=== PATIENT | male | born 1945 | race Caucasian/White ===

== ENCOUNTER → 2016-11-27 | Outpatient (CLI) | payer OTHER ==
[~2016-11-27] MED LIST: AMLODIPINE BESY10 MG PO; ASPIRIN EC81 M1 PO; BUMETANIDE2 M1 PO; COREG PO; COUMADIN2.5 MG PO; FISH OIL500 MG PO; FLEXERIL10 MG PO; FUROSEMIDE40 MG PO; GLIMEPIRIDE2 MG PO; HYDRALAZINE HCL25 MG PO; ISOSORBIDE DINI30 MG PO; K-TAB ER20 MEQ PO; KCL PO; LOSARTAN POTAS100 MG PO; MEVACOR40 MG PO; PRILOSEC PO; SIMVASTATIN40 MG PO; SOTALOL AF80 MG PO; TYLOX 5-500 MG1 EACH PO; WARFARIN SODIUM4 M1 PO
--- NOTE | ~2016-11-27 | CT2 ---
[facility] A Service of [facility] & [facility] RADIOLOGY TEXT RESULTS PATIENT: MICHEAL LERNER [facility] #: [id number] AGE: [address]: Denys Garber MD SEX: M ORDER DR: [id number] [facility] [address] [place], [place] [address] [id number] O MR#: [id number] Acc #: [id number] NAME: MICHEAL LERNER. : 1945 SEX: M STUDY DATE/TIME: 11/27/2016 10:16 UNIT: [facility] ROOM: STUDY DESCRIPTION: CT Abd and Pelv W Cont Attending Physician: Denys Garber M.D. Referring Physician: Denys Garber M.D. Ordering Physician: Denys Garber M.D. Primary Care Physician: Nir Welch M.D. MEDICAL IMAGING REPORT This report is preliminary unless electronic signature is present INDICATION Abdominal pain. Blood in the stool. Hematochezia. TECHNIQUE CT of the abdomen and pelvis with p.o. and IV contrast (100 mL Isovue-370 IV contrast). Coronal and sagittal reconstructions were obtained. COMPARISON CT abdomen, 12/31/[address] exam was performed with one or more of the following radiation dose reduction techniques: automatic exposure control, adjustment of mA and/or kV according to patient size, and iterative reconstruction. FINDINGS ABDOMEN: Low attenuation throughout the liver suggests background steatosis. There is some caudate hypertrophy and some mild periportal atrophy. Although nonspecific, this may suggest some background cirrhosis, however this is not definitive. The spleen is normal in size. Pancreas is normal. There is a benign left adrenal myelolipoma measuring 3.3 cm. Several cysts are noted in the kidneys. There is a nonobstructing calculus in the mid right kidney measuring 4.0 mm. No hydronephrosis. Small hiatal hernia. No enlarged retroperitoneal or mesenteric lymph nodes. The bowel is not dilated. There is occasional colonic diverticula. No diverticulitis. The abdominal aorta is normal in caliber. PELVIS: No enlarged pelvic or inguinal lymph nodes. Bladder is decompressed. No enlarged pelvic or inguinal lymph nodes. STS. [facility] A Service of [facility] & [facility] RADIOLOGY TEXT RESULTS PATIENT: MICHEAL LERNER LOCATION: [facility] : 43 UNIT #: [id number] AGE: [address]: Denys Garber MD SEX: M ORDER DR: No acute osseous abnormalities. IMPRESSION 1. No acute findings in the abdomen or pelvis. 2. Nonobstructing right renal calculus. 3. Hepatic steatosis. There are some features in the liver that are suggestive of background cirrhosis, however this is not definitive. 4. Benign left adrenal myelolipoma. 5. Diverticulosis. Dictated by... Joe Peterson M.D. THIS IS AN ELECTRONICALLY VERIFIED REPORT Joe Peterson M.D. at 11/27/2016 4:42 PM HARDY/partha TD: 11/27/2016 12:49 JOB #: [id number] MEDICAL IMAGING REPORT COPY
[2016-11-27 10:31] LABS: POC - CREATININE 1.25 mg/dL (0.64-1.27)
== END | disposition home or self-care (01) ==
LOC: CCAT 08:51
PROVIDERS: Surgery
DX: R10.9 Unspecified abdominal pain (principal); K92.1 Melena; N20.0 Calculus of kidney; K76.0 Fatty (change of) liver, not elsewhere classified; D17.79 Benign lipomatous neoplasm of other sites; K57.90 Diverticulosis of intestine, part unspecified, without perforation or abscess without bleeding
CPT/HCPCS: 74177; 82565; Q9967

== ENCOUNTER → 2016-11-30 | Day surgery (SDC) | payer OTHER ==
--- NOTE | ~2016-11-30 | OR ---
Unit #: [id number] #: [id number] Patient: MICHEAL LERNER [id number] [address] [address] [id number] O MR#: [id number] NAME: MICHEAL LERNER. ROOM: Date of Procedure: 11/30/2016 Admission Date: 11/30/2016 Surgeon: Denys Garber M.D. : 1945 Attending Physician: Denys Garber M.D. Primary Care Physician: Nir Welch M.D. OPERATIVE REPORT PREOPERATIVE DIAGNOSES 1. Rectal bleeding. 2. History of colon cancer in sibling. 3. History of duodenal mass. POSTOPERATIVE DIAGNOSES 1. Rectal bleeding. 2. History of colon cancer in sibling. 3. History of duodenal mass. PROCEDURE PERFORMED 1. Esophagogastroduodenoscopy. 2. Biopsy of antrum for Helicobacter pylori testing. 3. Biopsy of small gastric nodule at incisura with placement of hemoclip. 4. Colonoscopy to cecum. 5. Polypectomy at 70 cm with electrocautery snare. 6. Polypectomy at 55 cm with electrocautery snare as well as hemoclip placement and submucosal tattoo. ANESTHESIA Monitored anesthesia care. FINDINGS The patient was found on upper endoscopy to have a large hiatal hernia as well as some mild distal gastritis. There was a small 5 mm gastric nodule present at the incisura. A biopsy was obtained from this. A hemoclip was placed on the site for hemostasis. The duodenum was normal. On colonoscopy, the patient was found to have a few scattered sigmoid diverticula. A 5 mm polyp was found at 70 cm, removed with electrocautery snare with good hemostasis. A larger polyp approximately 1 to 1.5 cm in size was excised with electrocautery snare at 55 cm with good hemostasis, but hemoclip placement was placed on the stalk to ensure good hemostasis as well as submucosal tattooing of the area. SPECIMEN Sent to pathology. COMPLICATIONS None apparent. CONDITION The patient tolerated the procedure well. Unit #: [id number] #: [id number] Patient: MICHEAL LERNER INDICATIONS FOR PROCEDURE The patient is a 69-year-old white male, who has a history of a brother with colon cancer. In addition, he has had some intermittent rectal bleeding. He also has a history of a duodenal mass that was biopsied in the past without evidence of malignancy. DESCRIPTION OF PROCEDURE After obtaining informed consent, the patient was brought to the endoscopy suite and after adequate monitored anesthesia care, had the endoscope placed through the mouth in the upper esophagus under direct vision. It was advanced to the second and third portion of the duodenum without difficulty and with the lumen always in view. The duodenum was normal and the second and third portion as well as the duodenal bulb. There was no evidence of a previously excised duodenal mass. This was performed 2 to 3 years ago. We obtained images as well as the pathology, but there was no evidence of this present today. The pylorus opened normally. There was some mild distal gastritis present and a biopsy was obtained for Helicobacter pylori testing. On retroflexion back to the GE junction, there was a large hiatal hernia. No other abnormalities were found in the proximal third or middle third, however, at the incisura, there was a small 3 to 5 mm nodule present. It was excised and biopsied with the cold biopsy forceps. There was no active bleeding, however. A hemoclip was placed on the site of the biopsy because the patient would be having his anticoagulation restarted tomorrow. At this point in time, the endoscope was pulled back above the GE junction. There was no stenosis, stricture, or neoplasm seen. There was no significant esophagitis. The remaining portion of the esophagus was within normal limits. Laryngeal structures were grossly normal as viewed from above. At this point in time, the colonoscope was placed through the anus and advanced to the level of the cecum without difficulty with the lumen always in view. The cecum was normal as was the ileocecal valve. The ascending colon was normal as was the hepatic flexure, transverse colon, and splenic flexure. At 70 cm, there was a small 5 mm polyp found. It was excised completely with the electrocautery snare with good hemostasis. This was retrieved and sent to pathology. The descending colon was normal until at 55 cm. There was a 1 to 1.5 cm polyp present on a long stalk. It was excised completely with electrocautery snare with good hemostasis. It was retrieved and sent to pathology. A hemoclip was placed on the stalk to ensure good hemostasis after starting his anticoagulation. In addition, the area was submucosally tattooed. The remaining portion of the sigmoid colon showed some scattered sigmoid diverticula. The rectosigmoid and rectum were otherwise within normal limits. On retroflexing in the rectum to the anorectal junction, there were some mild internal hemorrhoids. The scope was removed without difficulty. The patient tolerated the procedure well, went from the endoscopy suite to the recovery area in stable condition. RECOMMENDATIONS High-fiber diet, lots of liquids, tucks or wipes p.r.n. Gastroesophageal reflux sheet given. Diverticular sheet given. Call Sunday for pathology. Dictated by... Bea Tee/smith Unit #: [id number] #: [id number] Patient: MICHEAL LERNER TD: 12/01/2016 06:43 JOB #: [id number] CC: Bea Hawkins M.D. [facility] Nir Welch M.D. OPERATIVE REPORT X Denys Garber MD X PROCEDURE OPERATIVE NOTE
[2016-11-30 08:55] LABS: INR 1.2
== END | disposition home or self-care (01) ==
LOC: COPS 07:50
PROVIDERS: Surgery
DX: D12.6 Benign neoplasm of colon, unspecified (principal); K29.50 Unspecified chronic gastritis without bleeding; K57.30 Diverticulosis of large intestine without perforation or abscess without bleeding; E11.9 Type 2 diabetes mellitus without complications; I25.2 Old myocardial infarction; D64.9 Anemia, unspecified; Z85.528 Personal history of other malignant neoplasm of kidney; Z80.0 Family history of malignant neoplasm of digestive organs; Z88.1 Allergy status to other antibiotic agents; Z88.8 Allergy status to other drugs, medicaments and biological substances; Z79.82 Long term (current) use of aspirin; Z79.899 Other long term (current) drug therapy; Z95.1 Presence of aortocoronary bypass graft
CPT/HCPCS: 82947; 85610; 87077; 88305; 88312

== ENCOUNTER → 2017-05-18 | Outpatient (CLI) | payer OTHER ==
--- NOTE | ~2017-05-18 | US140 ---
[facility] A Service of [facility] & [facility] RADIOLOGY TEXT RESULTS PATIENT: MICHEAL LERNER LOCATION: [facility] : 43 UNIT #: [id number] AGE: [address]: JACKIE WELCH MD (INT MED) SEX: M ORDER DR: [id number] [address] [address] [id number] O MR#: [id number] Acc #: [id number] NAME: MICHEAL LERNER : 1945 SEX: M STUDY DATE/TIME: 05/18/2017 13:18 UNIT: [facility] ROOM: STUDY DESCRIPTION: US UE Veins Unilat or Ltd Stdy Attending Physician: Jackie Welch M.D. Referring Physician: Jackie Welch M.D. Ordering Physician: Jackie Welch M.D. Primary Care Physician: Jackie Welch M.D. MEDICAL IMAGING REPORT This report is preliminary unless electronic signature is present. EXAM Soft tissue ultrasound HISTORY 71-year-old male complains of swelling, pain and lump in antecubital fossa for [id number] weeks, describes no specific injury. FINDINGS Real-time examination demonstrates a ovoid heterogeneous soft tissue mass within the antecubital fossa measuring approximately 3 cm in length and about 2 x 1.2 cm in greatest transverse dimensions. Etiology unclear but is suggestive of a possible hematoma though these typically are more heterogeneous in echotexture. Basilic vein is visualized in the antecubital fossa. Above and below the area of concern, the vessel appears clearly patent with flow. At the level of the abnormality, there is absence of Doppler flow but the vessel appears to be compressible. The exact etiology for this discrepancy is not known and this may be artifactual. Given the absence of significant symptoms of thrombosis, I doubt that this represents an acute or chronic thrombosis. The remainder of the visualized soft tissues unremarkable. The etiology for the mass in the antecubital fossa may be related to possible rupture of biceps tendon though a radiologist was not available at [facility] to evaluate the integrity of the biceps. Clinical option in this patient would be short-term interval followup clinically and if the area of concern regresses then no additional workup or evaluation may be needed. However if the abnormality persists or increases, further evaluation with MRI may be of benefit due to its improved sensitivity for detection of underlying soft tissue pathology. IMPRESSION 1. Approximately 3 cm soft tissue mass within the antecubital fossa. Imaging features are suggestive of a hematoma but nonspecific. As [facility] A Service of [facility] RADIOLOGY TEXT RESULTS PATIENT: MICHEAL LERNER LOCATION: [facility] : 43 UNIT #: [id number] AGE: [address]: JACKIE WELCH MD (INT MED) SEX: M ORDER DR: described above, clinical options would include short-term interval clinical followup in 3-4 weeks to see if the lesion has regressed. If so, then no additional imaging or followup may be warranted. If the abnormality does not resolve or continues to increase, then further evaluation with MRI may be warranted due to its improved sensitivity for evaluation of soft tissue pathology. These findings were discussed with Dr. Welch's nurse prior to this dictation. 2. Suspected artifactual loss of Doppler signal within the basilic vein at the level of the antecubital fossa. Given the absence of symptoms referable to DVT or SVT and the presence of flow above and below the area of interest, an acute thrombosis is considered unlikely. Dictated by... Tameka Lancaster M.D. THIS IS AN ELECTRONICALLY VERIFIED REPORT Tameka Lancaster M.D. at 05/25/2017 8:04 AM LEON/virgen TD: 05/19/2017 07:31 JOB #: [id number] MEDICAL IMAGING REPORT Page 1 of 1
== END | disposition home or self-care (01) ==
LOC: SNIV 12:30
DX: M25.442 Effusion, left hand (principal); R93.7 Abnormal findings on diagnostic imaging of other parts of musculoskeletal system
CPT/HCPCS: 76882; 93971